=== PATIENT | female | born 1955 | race Asian ===

== ENCOUNTER 2016-11-05 19:02 | Inpatient (IN) | payer OTHER ==
[2016-11-06 01:25] VITALS: BP 144/85
[2016-11-06] MEDS ORDERED: LORazepam 2 MG TAB PO PRN (02:15)
[2016-11-06] MEDS ORDERED: OXAZEPAM 15 MG CAP PO PRN (02:15)
[2016-11-06] MEDS ORDERED: MAALOX 30 ML SUSP *UDC PO PRN (02:15)
[2016-11-06] MEDS ORDERED: MOM 30ML SUSPENSION UDC PO PRN (02:15)
[2016-11-06] MEDS ORDERED: traZODone 50 MG TAB PO PRN (02:15)
[2016-11-06] MEDS: THIAMINE 100 MG TAB PO SCH ×2 (09:00→21:00)
[2016-11-06] MEDS: MULTIVITAMINS/MINERALS THERAP 1 TAB PO SCH (09:00)
[2016-11-06] MEDS: FOLIC ACID 1 MG TAB PO SCH (09:00)
[2016-11-06 11:11] VITALS: BP 127/72
[2016-11-06 12:36] VITALS: BP 127/72
[2016-11-06 16:30] VITALS: BP 113/60
[2016-11-06 18:26] VITALS: BP 104/53
[2016-11-06] MEDS: ACETAMINOPHEN TAB 650MG DOSE (2X325MG) PO PRN (18:39)
[2016-11-06] MEDS ORDERED: DOCUSATE SODIUM 100 MG CAP PO ONE (22:45)
[2016-11-07 06:00] VITALS: BP 128/70
[2016-11-07] MEDS: MULTIVITAMINS/MINERALS THERAP 1 TAB PO SCH (09:00)
[2016-11-07] MEDS: FOLIC ACID 1 MG TAB PO SCH (09:00)
[2016-11-07] MEDS: THIAMINE 100 MG TAB PO SCH ×2 (09:00→21:00)
[2016-11-07] MEDS: ACETAMINOPHEN TAB 650MG DOSE (2X325MG) PO PRN (09:19)
[2016-11-07 10:03] LABS: ALBUMIN 3.4 GM/DL (3.2-5.2); ALBUMIN/GLOBULIN RATIO 1.31 (1.00-1.93); ALKALINE PHOSPHATASE 47 U/L (45-117); ALT/SGPT 22 U/L (12-78); ANION GAP 6 MEQ/L (8-16); AST/SGOT 29 U/L (15-37); BILIRUBIN,TOTAL 0.5 MG/DL (0.2-1.0); BLOOD UREA NITROGEN 15 MG/DL (7-18); CALCIUM LEVEL 8.5 MG/DL (8.8-10.2); CARBON DIOXIDE LEVEL 26 MEQ/L (21-32); CHLORIDE LEVEL 108 MEQ/L (98-107); CREATININE FOR GFR 0.92 MG/DL (0.55-1.02); GLOMERULAR FILTRATION RATE > 60.0 (>45); GLUCOSE, FASTING 136 MG/DL (80-110); POTASSIUM SERUM 3.8 MEQ/L (3.5-5.1); SODIUM LEVEL 140 MEQ/L (136-145); T UPTAKE 33 % (30-39); THYROXINE (T4) 6.5 UG/DL (4.5-12.0)
[2016-11-07 16:58] VITALS: BP 135/88
[2016-11-07 18:00] VITALS: BP 135/88
[2016-11-07 22:00] VITALS: BP 128/76
[2016-11-08 06:00] VITALS: BP 152/98
[2016-11-08 06:13] VITALS: BP 158/92
[2016-11-08 07:40] LABS: ALBUMIN 3.6 GM/DL (3.2-5.2); ALBUMIN/GLOBULIN RATIO 1.16 (1.00-1.93); ALKALINE PHOSPHATASE 47 U/L (45-117); ALT/SGPT 27 U/L (12-78); ANION GAP 4 MEQ/L (8-16); AST/SGOT 35 U/L (15-37); BILIRUBIN,TOTAL 0.5 MG/DL (0.2-1.0); BLOOD UREA NITROGEN 9 MG/DL (7-18); CALCIUM LEVEL 8.8 MG/DL (8.8-10.2); CARBON DIOXIDE LEVEL 31 MEQ/L (21-32); CHLORIDE LEVEL 107 MEQ/L (98-107); CREATININE FOR GFR 0.68 MG/DL (0.55-1.02); GLOMERULAR FILTRATION RATE > 60.0 (>45); GLUCOSE, FASTING 98 MG/DL (80-110); POTASSIUM SERUM 3.7 MEQ/L (3.5-5.1); SODIUM LEVEL 142 MEQ/L (136-145); TOTAL PROTEIN 6.7 GM/DL (6.4-8.2)
[2016-11-08 09:00] VITALS: BP 160/84
[2016-11-08] MEDS: THIAMINE 100 MG TAB PO SCH ×2 (09:11→20:45)
[2016-11-08] MEDS: MULTIVITAMINS/MINERALS THERAP 1 TAB PO SCH (09:11)
[2016-11-08] MEDS: FOLIC ACID 1 MG TAB PO SCH (09:11)
[2016-11-08] MEDS: ACETAMINOPHEN TAB 650MG DOSE (2X325MG) PO PRN (09:13)
[2016-11-08] MEDS ORDERED: hydrOXYzine 25 MG TAB PO PRN (09:45)
[2016-11-08] MEDS: SERTRALINE HCL 50 MG TAB PO SCH (09:46)
[2016-11-08 12:00] VITALS: BP 150/73
[2016-11-08] MEDS: LOSARTAN 25 MG TAB PO SCH (13:26)
[2016-11-08] MEDS: NICOTINE POLACRILEX 2 MG GUM PO PRN ×2 (16:27→20:46)
[2016-11-08 18:00] VITALS: BP 154/94
[2016-11-09 06:34] VITALS: BP 118/63
[2016-11-09 06:38] LABS: ALBUMIN 3.7 GM/DL (3.2-5.2); ALBUMIN/GLOBULIN RATIO 1.42 (1.00-1.93); ALKALINE PHOSPHATASE 48 U/L (45-117); ALT/SGPT 26 U/L (12-78); ANION GAP 8 MEQ/L (8-16); AST/SGOT 31 U/L (15-37); BILIRUBIN,TOTAL 0.5 MG/DL (0.2-1.0); BLOOD UREA NITROGEN 11 MG/DL (7-18); CARBON DIOXIDE LEVEL 29 MEQ/L (21-32); CHLORIDE LEVEL 106 MEQ/L (98-107); CREATININE FOR GFR 0.63 MG/DL (0.55-1.02); GLOMERULAR FILTRATION RATE > 60.0 (>45); GLUCOSE, FASTING 101 MG/DL (80-110); POTASSIUM SERUM 3.8 MEQ/L (3.5-5.1); SODIUM LEVEL 143 MEQ/L (136-145); TOTAL PROTEIN 6.3 GM/DL (6.4-8.2)
[2016-11-09] MEDS: SERTRALINE HCL 50 MG TAB PO SCH (08:26)
[2016-11-09] MEDS: FOLIC ACID 1 MG TAB PO SCH (08:26)
[2016-11-09] MEDS: LOSARTAN 25 MG TAB PO SCH (08:26)
[2016-11-09] MEDS: MULTIVITAMINS/MINERALS THERAP 1 TAB PO SCH (08:26)
[2016-11-09] MEDS: ACETAMINOPHEN TAB 650MG DOSE (2X325MG) PO PRN ×2 (08:27→21:29)
[2016-11-09] MEDS: NICOTINE POLACRILEX 2 MG GUM PO PRN ×3 (08:28→17:53)
[2016-11-09 08:57] VITALS: BP 118/63
[2016-11-09 12:10] VITALS: BP 140/80
[2016-11-09 18:10] VITALS: BP 140/74
[2016-11-09] MEDS ORDERED: traZODone 100 MG TAB PO SCH (21:00)
[2016-11-09 21:33] VITALS: BP 146/86
[2016-11-10 06:27] VITALS: BP 100/55
[2016-11-10] MEDS: SERTRALINE HCL 50 MG TAB PO SCH (09:13)
[2016-11-10] MEDS: MULTIVITAMINS/MINERALS THERAP 1 TAB PO SCH (09:13)
[2016-11-10] MEDS: FOLIC ACID 1 MG TAB PO SCH (09:13)
[2016-11-10] MEDS: LOSARTAN 25 MG TAB PO SCH (09:13)
[2016-11-10] MEDS: NICOTINE POLACRILEX 2 MG GUM PO PRN ×2 (09:17→15:08)
[2016-11-10 12:08] VITALS: BP 113/70
[2016-11-10 18:00] VITALS: BP 123/71
[2016-11-10] MEDS ORDERED: traZODone 50 MG TAB PO SCH (21:00)
[2016-11-10] MEDS: ACETAMINOPHEN TAB 650MG DOSE (2X325MG) PO PRN (22:12)
[2016-11-11 07:05] VITALS: BP 90/58
[2016-11-11] MEDS: LOSARTAN 25 MG TAB PO SCH (09:00)
[2016-11-11] MEDS: SERTRALINE HCL 50 MG TAB PO SCH (09:01)
[2016-11-11] MEDS: FOLIC ACID 1 MG TAB PO SCH (09:01)
[2016-11-11] MEDS: MULTIVITAMINS/MINERALS THERAP 1 TAB PO SCH (09:02)
[2016-11-11] MEDS: ACETAMINOPHEN TAB 650MG DOSE (2X325MG) PO PRN ×2 (09:03→22:26)
[2016-11-11] MEDS ORDERED: RAMELTEON 8 MG TAB (ROZEREM) PO PRN (16:30)
[2016-11-11 18:00] VITALS: BP 134/85
[2016-11-12 06:00] VITALS: BP 125/68
[2016-11-12 08:12] VITALS: BP 125/68
[2016-11-12] MEDS: FOLIC ACID 1 MG TAB PO SCH (08:12)
[2016-11-12] MEDS: SERTRALINE HCL 50 MG TAB PO SCH (08:12)
[2016-11-12] MEDS: MULTIVITAMINS/MINERALS THERAP 1 TAB PO SCH (08:12)
[2016-11-12] MEDS ORDERED: LOSARTAN 25 MG TAB PO SCH (09:00)
[2016-11-12] MEDS ORDERED: COZA1TAB PO (11:43)
[2016-11-12] MEDS ORDERED: NICO2GUM62 PO (11:43)
[2016-11-12] MEDS ORDERED: SERT50TA PO (11:43)
[2016-11-12] MEDS ORDERED: ROZE8TAB9 PO (11:43)
== END 2016-11-12 14:00 | disposition home or self-care (01) | DRG 885 ==
LOC: EDBD 19:02 → M ED 19:56 → M ED INP 11-06 00:27 → M PSY 11-06 01:24
PROVIDERS: ADMIT Psychiatry & Neurology Psychiatry; ATTEND Psychiatry & Neurology Psychiatry
DX: F33.2 Major depressive disorder, recurrent severe without psychotic features (principal); F10.239 Alcohol dependence with withdrawal, unspecified; F17.213 Nicotine dependence, cigarettes, with withdrawal; I10 Essential (primary) hypertension; Z91.040 Latex allergy status; Z85.3 Personal history of malignant neoplasm of breast; Z85.41 Personal history of malignant neoplasm of cervix uteri; Z90.710 Acquired absence of both cervix and uterus; Z91.5 Personal history of self-harm; Z79.899 Other long term (current) drug therapy

== ENCOUNTER → 2017-03-20 | Outpatient (CLI) | payer OTHER ==
[~2017-03-20] MED LIST: COZA1TAB PO; ISOVUE-370 76% 100ML VIAL (Q9967) As Ordered ONE; NICO2GUM62 PO; ROZE8TAB16 PO; SERT50TA PO
--- NOTE | 2017-03-20 12:22 | REP ---
SOFT TISSUE CT STUDY OF THE NECK WITH IV CONTRAST: HISTORY: Dysphagia. The patient gives a history of cervical and breast carcinoma. CT CONTRAST DOSE: 75 mL of intravenous Isovue 370. CT FINDINGS: The parotid and submandibular glands are unremarkable and symmetric. Visualized paranasal sinuses are clear. No intraorbital abnormality is seen. Visualized intracranial structures are unremarkable. Thyroid lobes are normal and symmetric. No glottic or supraglottic laryngeal lesion is seen. Epiglottis is normal. The tonsillar and peritonsillar soft tissues are unremarkable. No vascular abnormality is seen. There is no evidence of suprahyoid or infrahyoid adenopathy. The lung apices are clear. IMPRESSION: Negative soft-tissue neck CT study with IV contrast. Signed by Aris Eubanks MD 03/20/2017 01:19 P
== END ==
LOC: M RAD 11:08
PROVIDERS: ATTEND Otolaryngology
DX: R13.10 Dysphagia, unspecified (principal)

== ENCOUNTER → 2017-11-11 | Outpatient (REF) | payer OTHER ==
[2017-11-11 13:26] LABS: APPEARANCE, URINE CLEAR (CLEAR); BACTERIA, URINE AUTO NEGATIVE (NEGATIVE); BILIRUBIN, URINE AUTO NEGATIVE (NEGATIVE); BLOOD, URINE BLOOD NEGATIVE (NEGATIVE); COLOR, URINE YELLOW (YELLOW); GLUCOSE, URINE (UA) AUTO NEGATIVE (NEGATIVE); KETONE, URINE AUTO NEGATIVE (NEGATIVE); LEUKOCYTE ESTERASE, URINE AUTO NEGATIVE (NEGATIVE); NITRITE, URINE AUTO NEGATIVE (NEGATIVE); PROTEIN, URINE AUTO NEGATIVE (NEGATIVE); RBC, URINE AUTO 1 /HPF (0-3); SPECIFIC GRAVITY URINE AUTO 1.006 (1.002-1.035); SQUAMOUS EPITHELIAL CELL UR AU 0 /HPF (0-6); UROBILINOGEN, URINE AUTO 0.2 mg/dL (0.0-2.0); WBC, URINE AUTO 0 /HPF (0-3)
== END ==
LOC: M SMT 13:00
DX: N39.44 Nocturnal enuresis (principal)

== ENCOUNTER 2018-12-08 07:38 | Day surgery (SDC) | payer OTHER ==
[~2018-12-08] VITALS: Ht 157.5 cm; Wt 47.2 kg
[~2018-12-08 07:38] MED LIST changes: +BUPIVACAINE/EPIN 0.25% 30 ML VIAL As Ordered ONE; +CHOL100029 PO; +CYMB60CA3 PO; -ISOVUE-370 76% 100ML VIAL (Q9967) As Ordered ONE; +LEVO50TA5 PO; +LIDOCAINE 1% MDV 20ML VIAL SQ PRN; +LR 1,000 ML IV ONE; +MILKSUS3 PO; +NICO2GUM52 PO; -NICO2GUM62 PO; +SERT-141 PO; -SERT50TA PO; +SIMV10TA21 PO; +ceFAZolin SOD 1 GM in D5W MINI-BAG PLUS 50 ML IV ONE
[2018-12-08] MEDS ORDERED: LIDOCAINE 2% INJ 100 MG/5 ML SDV (FOR ANES.) As Ordered ONE (08:03)
[2018-12-08] MEDS ORDERED: ROCURONIUM BROMIDE 50 MG/5 ML VIAL As Ordered ONE (08:03)
[2018-12-08] MEDS ORDERED: propofoL 200 MG/20 ML VIAL As Ordered ONE (08:03)
[2018-12-08] MEDS ORDERED: fentaNYL 250 MCG/5 ML INJECTION (J3010) As Ordered ONE (08:04)
[2018-12-08] MEDS ORDERED: MIDAZOLAM INJ 2 MG/2 ML VIAL (J2250) As Ordered ONE (08:04)
[2018-12-08 08:27] LABS: HEMATOCRIT 44.7 % (36.0-47.0); HEMOGLOBIN 14.8 g/dl (12.0-15.5); MEAN CORPUSCULAR HEMOGLOBIN 31.7 pg (27.0-33.0); MEAN CORPUSCULAR HGB CONC 33.1 g/dl (32.0-36.5); MEAN CORPUSCULAR VOLUME 95.7 fl (80.0-96.0); PLATELET COUNT, AUTOMATED 250 10^3/uL (150-450); RED BLOOD COUNT 4.67 10^6/uL (4.00-5.40); WHITE BLOOD COUNT 8.7 10^3/uL (4.0-10.0)
--- NOTE | 2018-12-08 08:31 | ECGEPIP ---
[facility] Test Date: 2018-12-08 Pat Name: BLUE HERNDON Department: Room: - Gender: Female Public Relations: Matthew : 1955 Requested By: Kendall Gerard Order Number: [id number] Reading MD: Nolberto Yin Measurements Intervals [place] Rate: 48 P: 31 SD: 151 QRS: 16 QRSD: 89 T: 63 QT: 471 QTc: 422 Interpretive Statements Sinus bradycardia Somewhat low voltage with slow precordial R-wave progression; body habitus versus pulmonary disease. Rule out prior septal infarction. Slower rate but otherwise unchanged from 11/06/16. Electronically Signed on 12-08-2018 8:30:52 EDT by Nolberto Yin
[2018-12-08 08:49] LABS: ALBUMIN 3.8 GM/DL (3.2-5.2); ALT/SGPT 19 U/L (12-78); BILIRUBIN,TOTAL 0.2 MG/DL (0.2-1.0); BLOOD UREA NITROGEN 15 MG/DL (7-18); CALCIUM LEVEL 8.9 MG/DL (8.8-10.2); CARBON DIOXIDE LEVEL 27 MEQ/L (21-32); CHLORIDE LEVEL 111 MEQ/L (98-107); CREATININE FOR GFR 0.86 MG/DL (0.55-1.30); GLOMERULAR FILTRATION RATE > 60.0 (>45); GLUCOSE, FASTING 82 MG/DL (70-100); POTASSIUM SERUM 3.8 MEQ/L (3.5-5.1); SODIUM LEVEL 142 MEQ/L (136-145); TOTAL PROTEIN 7.2 GM/DL (6.4-8.2)
[2018-12-08] MEDS ORDERED: ACETAMINOPHEN 1000MG 100ML IV BTL (OFIRMEV) (J0131 PER 10MG) As Ordered ONE (10:26)
[2018-12-08] MEDS ORDERED: dexameTHASONE 4 MG/ML 1ML VIAL (J1100) As Ordered ONE (10:26)
[2018-12-08] MEDS ORDERED: ONDANSETRON 4MG/2ML VIAL (J2405) As Ordered ONE (10:26)
[2018-12-08] MEDS ORDERED: KETOROLAC 60 MG/2 ML VIAL (J1885) As Ordered ONE (10:26)
[2018-12-08] MEDS ORDERED: SUGAMMADEX SODIUM 500 MG/5 ML VIAL (BRIDION) As Ordered ONE (10:31)
[2018-12-08] MEDS ORDERED: fentaNYL 100 MCG/2 ML INJECTION (J3010) As Ordered ONE ×2 (10:44→10:50)
[2018-12-08] MEDS: fentaNYL 100 MCG/2 ML INJECTION (J3010) IV PRN ×4 (10:53→11:14)
[2018-12-08] MEDS ORDERED: LR 1,000 ML IV SCH ×2 (11:00)
[2018-12-08] MEDS ORDERED: ONDANSETRON 4MG/2ML VIAL (J2405) IV PRN (11:00)
[2018-12-08] MEDS ORDERED: oxyCODONE 5MG TAB PO PRN (11:00)
[2018-12-08] MEDS ORDERED: NORCO, ANEXSIA 5/325MG TABLET (HYDROcodone/ACETAMINOPHEN) PO PRN (11:00)
--- NOTE | 2018-12-08 11:02 | RO ---
DATE OF PROCEDURE: 12/08/2018 PREOPERATIVE DIAGNOSIS: Gallbladder dysfunction. POSTOPERATIVE DIAGNOSIS: Gallbladder dysfunction. PROCEDURE: Laparoscopic cholecystectomy. SURGEON: Kendall Whatley Jr., MD DRY SAND MOLDER: ANESTHESIA: General endotracheal anesthesia. ESTIMATED BLOOD LOSS: Minimal. FLUIDS: Crystalloid. BRIEF PROCEDURE SUMMARY: The patient was brought to the operating room, was given general anesthesia. After adequate anesthesia and preoperative antibiotics were given, the patient was prepped and draped in the usual sterile fashion. Next, a supraumbilical incision was made with a skin knife. Blunt dissection was carried down to fascia. Fascia was grasped with Donny clamps, elevated and Veress needle placed into the abdominal cavity, insufflated to 15 mm of pressure. A dilating 10 mm trocar was placed and under direct visualization epigastric and two lateral trocars were placed. Next, the gallbladder was seen, grasped, retracted superiorly and there was numerous adhesions of the omentum up against the gallbladder, surprising in this gallbladder dysfunction situation, but in any case, the adhesions were taken down with hook cautery down to the level of the duodenum, where the duodenum was also taken off the gallbladder itself. Mostly blunt dissection was used to clear this loose areolar tissue/adhesions in this area. In any case, once this was mobilized quite nicely, the neck of the gallbladder was cleared of peritoneum both laterally and medially, the cystic artery was well visualized going up onto the gallbladder itself, and once this was identified the cystic duct was readily identified quite nicely as well. A critical view of safety was obtained and cystic artery was clipped proximally and distally and transected, then the critical view of safety was even bigger view with better visualization of the cystic duct itself, which was clipped proximally and distally and transected. The gallbladder was then removed from the gallbladder bed using electrocautery. There was a small little blood vessel that was clipped in the mid gallbladder bed that was oozing after transection with electrocautery, and then adequate hemostasis was obtained at that time. Next, the gallbladder was removed from the gallbladder bed, placed in an EndoCatch bag, brought out through the umbilicus without any difficulty. The right upper quadrant was copiously irrigated until clear. All trocars were removed under direct visualization. #0 Vicryl was used to close the fascia at the umbilicus and all incisions were closed with #4-0 Vicryl. Steri-Strips and a dry sterile dressing was applied. The patient was awakened, extubated, brought to recovery room awake, alert and hemodynamic stable. Sponge and needle counts were correct times two.
[2018-12-08 13:17] VITALS: BP 156/78
== END 2018-12-08 14:19 | disposition home or self-care (01) ==
LOC: M SDC 07:38
PROVIDERS: ATTEND Surgery
DX: K81.1 Chronic cholecystitis (principal); I10 Essential (primary) hypertension; K21.9 Gastro-esophageal reflux disease without esophagitis; M79.7 Fibromyalgia; F32.9 Major depressive disorder, single episode, unspecified; E03.9 Hypothyroidism, unspecified; Z79.899 Other long term (current) drug therapy; Z85.3 Personal history of malignant neoplasm of breast; Z92.21 Personal history of antineoplastic chemotherapy; Z92.3 Personal history of irradiation; Z91.040 Latex allergy status; F17.210 Nicotine dependence, cigarettes, uncomplicated
CPT/HCPCS: 36415; 47562; 80053; 85027; 88304; 93005; J0131; J0690; J1100; J1885; J2250; J2405; J3010

== ENCOUNTER → 2018-12-25 | Outpatient (CLI) | payer OTHER ==
[~2018-12-25] MED LIST changes: -BUPIVACAINE/EPIN 0.25% 30 ML VIAL As Ordered ONE; -CHOL100029 PO; -LIDOCAINE 1% MDV 20ML VIAL SQ PRN; -LR 1,000 ML IV ONE; -NICO2GUM52 PO; +NICO2GUM62 PO; +SIMV10TA2 PO; -SIMV10TA21 PO; +VITAD1000T PO; -ceFAZolin SOD 1 GM in D5W MINI-BAG PLUS 50 ML IV ONE
--- NOTE | 2018-12-25 10:22 | REP ---
Clinical: Nocturnal enuresis. Technique: Real time benavidez scale ultrasound examination using curved array transducer. Findings: Bilateral kidneys are normal in contour, size, echogenicity, and reniform shape without hydronephrosis, nephrolithiasis, cystic or renal mass lesion. Right kidney measures 9.5 x 4.2 x 3.7 cm. Left kidney measures 9.1 x 4.2 x 5.2 cm. Bladder is unremarkable. Impression: Normal renal ultrasound. Electronically Signed by Sukhdev Yi MD 12/25/2018 10:14 A
== END ==
LOC: M RAD 09:50
PROVIDERS: ATTEND Specialist
DX: N39.44 Nocturnal enuresis (principal)

== ENCOUNTER → 2019-10-31 | Outpatient (CLI) | payer OTHER ==
[~2019-10-31] MED LIST changes: +CHOL100029 PO; +COLA100C5 PO; +EX-L15TA PO; +LINZ72CA PO; +NICO2GUM54 PO; -NICO2GUM62 PO; -SIMV10TA2 PO; +SIMV10TA21 PO; +VITA200048 PO; -VITAD1000T PO
== END ==
LOC: M LABSMTC 10:12
PROVIDERS: ATTEND Anesthesiology
DX: Z03.818 Encounter for observation for suspected exposure to other biological agents ruled out (principal); Z11.59 Encounter for screening for other viral diseases
CPT/HCPCS: C9803; U0003

== ENCOUNTER 2019-11-03 13:12 | Day surgery (SDC) | payer OTHER ==
[~2019-11-03] VITALS: Ht 157.5 cm; Wt 45.4 kg
[~2019-11-03 13:12] MED LIST changes: +NS 1,000 ML IV ONE
--- NOTE | 2019-11-03 14:44 | ROOR ---
Patient Name: Sanam Salazar Procedure Date: 11/03/2019 2:29 PM Date of : 1955 Age: 64 Room: [facility] Gender: Female Note Status: Finalized Procedure: Upper Endoscopy + Biopsies Indications: Heartburn Providers: Vineet Waldron MD Referring MD: FARRAH CHAMORRO MD Requesting Provider: Medicines: Monitored Anesthesia Care Complications: No immediate complications. Procedure: Pre-Anesthesia Assessment: - The heart rate, respiratory rate, oxygen saturations, blood pressure, adequacy of pulmonary ventilation, and response to care were monitored throughout the procedure. The Endoscope was introduced through the mouth, and advanced to the second part of duodenum. The upper GI endoscopy was accomplished without difficulty. The patient tolerated the procedure well. Findings: The Z-line was regular and was found 38 cm from the incisors. Diffuse minimal inflammation characterized by congestion (edema) and erythema was found in the gastric antrum. Biopsies were taken with a cold forceps for Helicobacter pylori testing. The exam of the duodenum was otherwise normal. Impression: - Z-line regular, 38 cm from the incisors. - Mucosal changes suspicious for gastritis. Biopsied. - The examination was otherwise normal. Recommendation: - Patient has a contact number available for emergencies. The signs and symptoms of potential delayed complications were discussed with the patient. Return to normal activities tomorrow. Written discharge instructions were provided to the patient. - Resume previous diet. - Discharge patient to home. - Continue present medications. - Await pathology results. - Telephone GI clinic for pathology results in 1 week. - Return to referring physician. - The findings and recommendations were discussed with the patient's family. Vineet Waldron MD Vineet Waldron MD 11/03/2019 2:44:24 PM Electronically signed by Vineet Waldron MD Number of Addenda: 0 Note Initiated On: 11/03/2019 2:29 PM Estimated Blood Loss: Estimated blood loss: none.
--- NOTE | 2019-11-03 15:07 | ROOR ---
Patient Name: Sanam Salazar Procedure Date: 11/03/2019 2:30 PM Date of : 1955 Age: 64 Room: [facility] Gender: Female Note Status: Finalized Procedure: Total Colonoscopy to Cecum Indications: Change in bowel habits, Constipation Providers: Vnieet Waldron MD Referring MD: FARRAH CHAMORRO MD Requesting Provider: Medicines: Monitored Anesthesia Care Complications: No immediate complications. Procedure: Pre-Anesthesia Assessment: - The heart rate, respiratory rate, oxygen saturations, blood pressure, adequacy of pulmonary ventilation, and response to care were monitored throughout the procedure. The Colonoscope was introduced through the anus and advanced to the cecum, identified by appendiceal orifice and ileocecal valve. The colonoscopy was performed without difficulty. The patient tolerated the procedure well. The quality of the bowel preparation was excellent. Findings: The perianal and digital rectal examinations were normal. Non-bleeding internal hemorrhoids were found during retroflexion. The hemorrhoids were small and Grade I (internal hemorrhoids that do not prolapse). A single small-mouthed diverticulum was found in the recto-sigmoid colon. The exam was otherwise without abnormality on direct and retroflexion views. Impression: - Non-bleeding internal hemorrhoids. - Diverticulosis in the recto-sigmoid colon. - The examination was otherwise normal on direct and retroflexion views. - No specimens collected. - The exam was otherwise normal to the cecum. Recommendation: - Patient has a contact number available for emergencies. The signs and symptoms of potential delayed complications were discussed with the patient. Return to normal activities tomorrow. Written discharge instructions were provided to the patient. - High fiber diet. - Discharge patient to home. - Continue present medications. - Repeat colonoscopy in 10 years for screening purposes. - Return to referring physician. - The findings and recommendations were discussed with the patient's family. Vineet Waldron MD iVneet Waldron MD 11/03/2019 3:07:33 PM Electronically signed by Vineet Waldron MD Number of Addenda: 0 Note Initiated On: 11/03/2019 2:30 PM Estimated Blood Loss: Estimated blood loss: none.
[2019-11-03 15:30] VITALS: BP 117/57
[2019-11-03] MEDS ORDERED: propofoL 200 MG/20 ML VIAL As Ordered ONE (15:34)
== END 2019-11-03 16:00 | disposition home or self-care (01) ==
LOC: M OPP 13:12
PROVIDERS: ATTEND Internal Medicine Gastroenterology
DX: K64.9 Unspecified hemorrhoids (principal); K57.30 Diverticulosis of large intestine without perforation or abscess without bleeding; R19.4 Change in bowel habit; K31.89 Other diseases of stomach and duodenum; R12 Heartburn; M79.7 Fibromyalgia; F17.210 Nicotine dependence, cigarettes, uncomplicated; Z79.899 Other long term (current) drug therapy; Z91.040 Latex allergy status; Z85.3 Personal history of malignant neoplasm of breast